=== PATIENT | female | born 1950 | race Caucasian/White ===

== ENCOUNTER 2022-01-14 07:34 | Emergency (ER) | payer MEDICARE ==
[~2022-01-14] VITALS: Ht 157.5 cm; Wt 140.6 kg
[2022-01-14] MEDS ORDERED: SPIRIVA18 MCG INH (09:41)
[2022-01-14] MEDS ORDERED: BAYER CHEWABLE81 MG PO (09:41)
[2022-01-14] MEDS ORDERED: LEVOTHYROXINE100 MC2 PO (09:42)
[2022-01-14] MEDS ORDERED: HYDROCODON-ACE1 EA10 PO (09:42)
--- OUTSIDE RECORDS SUMMARY | 2022-01-14 11:04 | XMS ---
PreManage Notification: MARIE FOWLER Security Business And Financial Counsel Events No recent Security Events currently on file [facility] There are no care providers on record at this time. Elbert has no Care Guidelines for this patient. Jostin VISIT COUNT (12 MO.) 1 MAGGI Faye TOTAL 1 NOTE: Visits indicate total known visits. ED/UCC VISIT TRACKING (12 MO.) 01/14/2022 07:35 [facility]GI [facility] [place] TYPE: Emergency COMPLAINT: - ABDOMINAL PAIN INPATIENT VISIT TRACKING (12 MO.) No inpatient visits to display in this time frame [email or web address]
[2022-01-14] MEDS ORDERED: LEVOFLOXACIN750 MG PO (12:45)
--- NOTE | 2022-01-15 07:52 | CONS ---
[facility] [address], [place] [address] Signed DATE OF CONSULTATION: 01/14/2022 CHIEF COMPLAINT: Nausea, vomiting. HISTORY OF PRESENT ILLNESS: Joseline is a 71-year-old obese female with COPD and [place] last year, who had a laparoscopic cholecystectomy two years ago. By the next day, she had pulled the suture out of the supraumbilical trocar site. It necessitated a trip back to the operating room to close that primarily. She said not too long after that it opened up once again. She has mentioned it to her primary care provider. Due to her overall health and so forth they wanted to wait and watch that conservatively. [place]. She started having some nausea and vomiting and diarrhea yesterday. She decided to come to the emergency room for evaluation. She receives some IV pain medication and IV fluids and said she is feeling much better. When she had her CT scan of the abdomen and pelvis done, one can easily see this 3 x 3.4 x 3.5 cm hernia containing small bowel. There is little bit of edema and swelling in that mesentery. Interestingly enough, she does have a small 3-cm abdominal aortic aneurysm, which needs to be followed. I also told her about the small lesion in the pancreatic tail as well as the left adrenal gland that she probably have an MRI as an outpatient. She was feeling much better and had asked the ER doctor to go home. He asked if I could come see her emergency room for evaluation as a general surgeon on-call. PAST MEDICAL HISTORY: COPD, [place], diverticulosis, osteoarthritis, colonic polyps, hypothyroidism. PAST SURGICAL HISTORY: Laparoscopic cholecystectomy at age 69, cardiac stents, colonoscopy x2, and a supraumbilical trocar site incisional hernia repair at age 69. SOCIAL HISTORY: She quit smoking in March 2021. She does not drink. She is now a . She has two children. Her son is Frank Finn at [phone]. He lives in [place], [place]. Her primary care provider is Dr. Brock Appiah in [place], [place]. She prefers the [facility] back in [place], [place]. FAMILY HISTORY: Mom and maternal grandmother both had breast cancer. Her father in a motor vehicle crash. Her sister of a brain aneurysm. REVIEW OF SYSTEMS: She had 10 systems reviewed and talked about her arthritis in particular her knees. She therefore has to use a walker. Electronically Signed By: HARJINDER PAUL MD 01/15/22 0752 PATIENT NAME: JOSELINE MONK [facility] CONSULTATION DATE OF : 48 REPORT #: [id number] PHYSICIAN: HARJINDER PAUL MD PCP: OTHER PCP REPORT IS CONFIDENTIAL AND NOT TO BE RELEASED WITHOUT AUTHORIZATION [facility] [address], [place] [address] Signed ALLERGIES: None. MEDICATIONS: Spiriva, aspirin, levothyroxine, and [place]. PHYSICAL EXAMINATION: VITAL SIGNS: Her blood pressure is 144/83, heart rate 102, respiratory rate 21, temperature is 98.2. She is 94% on room air. She is 5 feet 2 inches at 140 kg (310 pounds). GENERAL: Joseline is a 71-year-old female lying supine in her ER bed. It is clear. She has been a long-time smoker. HEART: Regular rate and rhythm without murmur. LUNGS: Generally clear to auscultation bilaterally ABDOMEN: Quite obese. I can easily see this hernia in the midline with a 6-7 cm surgical scar over it. It is not reducible currently. However, it is not tender and there is no change in the skin over top of this area. She said that is chronic and it never goes back inside. LABS: Her white blood cell count is 11.3, hemoglobin 13, neutrophils 92. Her BUN 12, creatinine 1.1, glucose 171. Urinalysis did show nitrites, white blood cells, and 3+ bacteria, and therefore she received IV Levaquin by the ER physician. The urine culture is pending. Her liver function tests were unremarkable. The albumin is 3.4. RADIOGRAPHIC STUDIES: The chest x-ray is essentially unremarkable. The CT scan is reviewed, both images and report. We can easily see this the supraumbilical trocar site incisional hernia containing small bowel. She also has a small nodule in the tail of the pancreas as well as the left adrenal gland for which an MRI has been recommended. She also has a small infrarenal 3 cm abdominal aortic aneurysm. ASSESSMENT/PLAN: Joseline is a 71-year-old, obese female who presents as above. She clearly has a recurrent and chronic supraumbilical trocar site incisional hernia. They have been watching this conservatively. I did recommend she have it repaired and I would be happy to do that today or 1st thing in the morning. However, she told me she would much prefer to travel back to [place], [place]. She said she feels much better and she is very confident that her [id number] and family can drive her back down to [place]. She knows that if it gets worse tonight or tomorrow she would have to go to the emergency room in [place], [place]. Otherwise, she needs to call her primary care provider first thing on Monday morning, today is Monday. She needs followup for the incisional hernia and really should strongly consider having that repaired. She also Electronically Signed By: HARJINDER PAUL MD 01/15/22 0752 PATIENT NAME: JOSELINE MONK CONSULTATION DATE OF : 48 REPORT #: [id number] PHYSICIAN: HARJINDER PAUL MD PCP: OTHER PCP REPORT IS CONFIDENTIAL AND NOT TO BE RELEASED WITHOUT AUTHORIZATION [facility] [address], [place] [address] Signed needs followup on the small nodule in the pancreatic tail in the left adrenal gland, and she should note that she has a small 3 cm infrarenal abdominal aortic aneurysm that needs to be followed as well. I reviewed all this with Joseline in detail. She has expressed understanding and would like to proceed with return to [place] with her family. MD ROXANE López/ASHLEY /[id number] cc: Dr. Brock Appiah [place], [place] Copies: ~ Electronically Signed By: HARJINDER PAUL MD 01/15/22 0752 PATIENT NAME: JOSELINE MONK CONSULTATION DATE OF : 48 REPORT #: [id number] PHYSICIAN: HARJINDER PAUL MD PCP: OTHER PCP REPORT IS CONFIDENTIAL AND NOT TO BE RELEASED WITHOUT AUTHORIZATION
--- NOTE | 2022-01-16 08:06 | EKG ---
[facility] [address] [facility] [place] [address] Signed Sinus tachycardia Nonspecific ST and T wave abnormality Abnormal ECG No previous ECGs available Confirmed by PACO BLOOM MD ([id number]) on 01/16/2022 8:05:49 AM Electronically Signed By: PACO BLOOM MD 01/16/22 08 PATIENT NAME: MAIRE MONK ROYER Electrocardiogram DATE OF : 48 PHYSICIAN: PACO BLOOM MD REPORT #: [id number] REPORT IS CONFIDENTIAL AND NOT TO BE RELEASED WITHOUT AUTHORIZATION
== END 2022-01-14 13:08 | disposition home or self-care (01) ==
LOC: ED 07:34
DX: J18.9 Pneumonia, unspecified organism (principal); K43.9 Ventral hernia without obstruction or gangrene; J44.9 Chronic obstructive pulmonary disease, unspecified; I25.2 Old myocardial infarction; Z79.899 Other long term (current) drug therapy; Z79.82 Long term (current) use of aspirin
CPT/HCPCS: 36415; 71045; 74177; 80053; 81001; 83690; 84484; 85025; 93005; 93010; 99285-25; J1956; J7030; Q9967